=== PATIENT | female | born 1990 | race Caucasian/White ===

== ENCOUNTER 2016-09-15 23:44 | Emergency (ER) | payer BC, OTHER ==
[2016-09-15 23:49] VITALS: BP 106/74; PULSE 83; TEMP 98.1; BMI 24.3
--- NOTE | 2016-09-15 23:55 | PDOC ---
History of Present Illness - General Chief Complaint: Pain Stated Complaint: THROAT PAIN/GEN BODY PAIN Time Seen by Provider: 09/15/16 23:46 History Source: Patient Exam Limitations: No Limitations - History of Present Illness Initial Comments: 09/15/16 23:55 26 y f no pmhx sore throat, generalized muscle ache all day today. some congestion. no cp or sob. no n/v/d. no abd pain. no dysuria, fcy, or hematuria. in ed, in nad. Past History - Past Medical History Allergies/Adverse Reactions: Allergies Allergy/AdvReac Type Severity Reaction Status Date / Time [facility] Allergy Verified 12/16/14 00:33 Home Medications: Ambulatory Orders Albuterol Sulfate Inhaler - [Ventolin HFA Inhaler -] 2 inh PO PRN 12/16/14 Amox-Tr/K Cl [Augmentin - 875Mg Tablet] 1 tab PO BID #14 tablet 12/16/14 Asthma: Yes - Immunization History Immunization Up to Date: Yes - Psycho/Social/Smoking Cessation Hx Anxiety: No Suicidal Ideation: No Smoking Status: No Smoking History: Never smoked Have you smoked in the past 12 months: No Number of Cigarettes Smoked Daily: 0 Hx Alcohol Use: No Substance Use Type: None Review of Systems - Review of Systems Able to Perform ROS?: Yes Is the patient limited Romanian proficient: No Constitutional: Yes: Symptoms Reported, See HPI HEENTM: Yes: Symptoms Reported, See HPI Respiratory: No: Symptoms reported Cardiac (ROS): No: Symptoms Reported ABD/GI: No: Symptoms Reported : No: Symptoms Reported Integumentary: No: Symptoms Reported Neurological: No: Symptoms reported All Other Systems: Reviewed and Negative *Physical Exam - Physical Exam General Appearance: Yes: Nourished, Appropriately Dressed. No: Apparent Distress HEENT: positive: Normal ENT Inspection Neck: positive: Supple. negative: Tender Respiratory/Chest: positive: Lungs Clear, Normal Breath Sounds. negative: Respiratory Distress Cardiovascular: positive: Regular Rhythm, Regular Rate Gastrointestinal/Abdominal: positive: Normal Bowel Sounds, Soft Musculoskeletal: positive: Normal Inspection. negative: CVA Tenderness, Vertebral Tenderness Extremity: positive: Normal Capillary Refill Integumentary: positive: Normal Color Neurologic: positive: Fully Oriented, Alert, Normal Mood/Affect, Normal Response , Motor Strength 5/5 *DC/Admit/Observation/Transfer Diagnosis at time of Disposition: Viral infection - Discharge Dispostion Disposition: HOME Condition at time of disposition: Good - Patient Instructions Additional Instructions: PLENTY OF FLUIDS (WATER/GATORADE) MOTRIN/TYLENOL FOR FEVER OR PAIN REST RETURN IF FEVER, VOMITING, SHORTNESS OF BREATH - Post Discharge Activity Work/School Note: Back to Work
== END 2016-09-16 00:01 | disposition home or self-care (01) ==
LOC: FER 23:44
DX: B34.9 Viral infection, unspecified (principal)
CPT/HCPCS: 99282-25

== ENCOUNTER 2016-12-24 15:22 | Emergency (ER) | payer BC ==
[2016-12-24 15:28] VITALS: BP 128/86; PULSE 65; TEMP 97.6; BMI 24.0
[2016-12-24 15:45] LABS: PH,URINE 5.5 (4.5-8); URINE APPEARANCE Cloudy; URINE BILIRUBIN Negative (NEGATIVE); URINE BLOOD 3+ (NEGATIVE); URINE GLUCOSE (UA) Negative (NEGATIVE); URINE KETONE Negative (NEGATIVE); URINE LEUK ESTERASE Negative (NEGATIVE); URINE NITRITE Negative (NEGATIVE); URINE PROTEIN Trace (NEGATIVE); URINE UROBILINOGEN 0.2 E.U/dl (0.2-1.0)
[2016-12-24 15:46] LABS: URINE BACTERIA MODERATE /hpf (NEGATIVE); URINE COLOR YELLOW; URINE WBC 0-3 (3-5)
[2016-12-24 15:48] LABS: URINE HYALINE CAST 0-3 /lpf
[2016-12-24] MEDS ORDERED: SODIUM CHLORIDE 1,000 ML IV STA (15:54)
[2016-12-24] MEDS ORDERED: KETOROLAC TROMETHAMINE 30 MG/1 ML VIAL IVPUSH ONE (15:54)
[2016-12-24] MEDS ORDERED: ONDANSETRON 4 MG/2 ML VIAL IVPB ONE (15:55)
[2016-12-24] MEDS ORDERED: KETOROLAC TROMETHAMINE 30 MG/1 ML VIAL ONE (15:58)
[2016-12-24] MEDS ORDERED: ONDANSETRON 4 MG/2 ML VIAL ONE (15:58)
--- NOTE | 2016-12-24 15:59 | PDOC ---
History of Present Illness - General History Source: Patient Exam Limitations: No Limitations - History of Present Illness Initial Comments: 12/24/16 16:18 The patient is a 26 year old female, with significant past medical history of migraine headaches, who presents today complaining of RLQ abdominal pain, nausea ,and diarrhea x1 day. The patient states that she is experiencing RLQ intermittent cramping pain starting at 12:00pm today that sometimes radiates to the back and the groin. The patient is doubled over due to the severity of pain. The patient reports multiple episodes of diarrhea since the pain began at 12:00pm. She reports urinary urgency. 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 The patient took 1 extra strength Tylenol 4 hours ago with mild relief. Her LMP was 12/06/16. No fever, chills, vomiting. No chest pain, SOB, cough. No hx diverticulitis, kidney stones, No pregnancies. No hx of ovarian cysts. Allergies: Cefaclor Surgical Hx: none reported Social Hx: No tobacco use. <Cira Rollins - Last Filed: 12/24/16 18:01> <Gorge Alberto - Last Filed: 12/24/16 18:16> - General Chief Complaint: Pain, Acute Stated Complaint: RIGHT SIDE PAIN Time Seen by Provider: 12/24/16 15:52 Past History <Cira Rollins - Last Filed: 12/24/16 18:01> - Past Medical History Asthma: Yes - Immunization History Immunization Up to Date: Yes - Psycho/Social/Smoking Cessation Hx Anxiety: No Suicidal Ideation: No Smoking Status: No Smoking History: Never smoked Have you smoked in the past 12 months: No Number of Cigarettes Smoked Daily: 0 Hx Alcohol Use: No Drug/Substance Use Hx: No Substance Use Type: None <Gorge Alberto - Last Filed: 12/24/16 18:16> - Past Medical History Allergies/Adverse Reactions: Allergies Allergy/AdvReac Type Severity Reaction Status Date / Time cefaclor [From [facility]] Allergy Verified 12/24/16 15:23 Home Medications: Ambulatory Orders Cholecalciferol (Vitamin D3) [Vitamin D3] 2,000 unit PO DAILY 12/24/16 Ibuprofen 800 mg PO QID PRN #20 tablet 12/24/16 Ondansetron [Zofran Odt -] 4 mg SL TID PRN #20 od.tablet 12/24/16 Tamsulosin HCl [Flomax] 0.4 mg PO DAILY #7 cap.er.24h 12/24/16 Review of Systems - Review of Systems Able to Perform ROS?: Yes Comments:: 12/24/16 16:20 CONSTITUTIONAL: Absent: fever, chills, diaphoresis, generalized weakness, malaise, loss of appetite HEENT: Absent: rhinorrhea, nasal congestion, throat pain, throat swelling, difficulty swallowing, mouth swelling, ear pain, eye pain, visual Changes CARDIOVASCULAR: Absent: chest pain, syncope, palpitations, irregular heart rate, lightheadedness , peripheral edema RESPIRATORY: Absent: cough, shortness of breath, dyspnea with exertion, orthopnea, wheezing, stridor, hemoptysis GASTROINTESTINAL: Present: RLQ abdominal pain that is intermittently radiates to the back and groin, nausea, diarrhea Absent: abdominal distension, vomiting, constipation, melena, hematochezia GENITOURINARY: Present: urinary urgency, intermittent flank pain. Absent: dysuria, frequency, hesitancy, hematuria, genital pain MUSCULOSKELETAL: Absent: myalgia, arthralgia, joint swelling SKIN: Absent: rash, itching, pallor HEMATOLOGIC/IMMUNOLOGIC: Absent: easy bleeding, easy bruising, lymphadenopathy, frequent infections ENDOCRINE: Absent: unexplained weight gain, unexplained weight loss, heat intolerance, cold intolerance NEUROLOGIC: Absent: headache, focal weakness or paresthesias, dizziness, unsteady gait, seizure, mental status changes, bladder or bowel incontinence PSYCHIATRIC: Absent: anxiety, depression, suicidal or homicidal ideation, hallucinations. <Cira Rollins - Last Filed: 12/24/16 18:01> *Physical Exam - Vital Signs Last Vital Signs Temp Pulse Resp BP Pulse Ox 97.6 F 65 18 128/86 100 12/24/16 15:23 12/24/16 15:23 12/24/16 15:23 12/24/16 15:57 12/24/16 15:23 - Physical Exam Comments: 12/24/16 16:21 GENERAL: Well developed, well nourished. Awake and alert. Moderate distress due to right sided crampy abdominal pain, but completely cooperative. Afebrile with normal vital signs. HEENT: Normocephalic, atraumatic. PERRLA, EOMI. No conjunctival pallor. Sclera are non- icteric. Moist mucous membranes. Oropharynx is clear. NECK: Supple. Full ROM. No JVD. Carotid pulses 2+ and symmetric, without bruits. No thyromegaly. No lymphadenopathy. CARDIOVASCULAR: Regular rate and rhythm. No murmurs, rubs, or gallops. Distal pulses are 2+ and symmetric. PULMONARY: No evidence of respiratory distress. Lungs clear to auscultation bilaterally. No wheezing, rales or rhonchi. ABDOMINAL: Soft without mass or organomegaly. No tenderness elicited with deep palpation within all 4 quadrants. Non-distended. No rebound or guarding. No organomegaly. Normoactive bowel sounds. MUSCULOSKELETAL Normal range of motion at all joints. No bony deformities or tenderness. No CVA tenderness. EXTREMITIES: No cyanosis. No clubbing. No edema. No calf tenderness. SKIN: Warm and dry. Normal capillary refill. No rashes. No jaundice. NEUROLOGICAL: Alert, awake, appropriate. Cranial nerves 2-12 intact. No deficits to light touch and temperature in face, upper extremities and lower extremities. No motor deficits in the in face, upper extremities and lower extremities. Normoreflexic in the upper and lower extremities. Normal speech. Toes are downgoing bilaterally. Gait is normal without ataxia. PSYCHIATRIC: Cooperative. Good eye contact. Appropriate mood and affect. <Cira Rollins - Last Filed: 12/24/16 18:01> - Vital Signs Last Vital Signs Temp Pulse Resp BP Pulse Ox 97.6 F 65 18 128/86 100 12/24/16 15:23 12/24/16 15:23 12/24/16 15:23 12/24/16 15:23 12/24/16 15:23 <Gorge Alberto - Last Filed: 12/24/16 18:16> ED Treatment Course - LABORATORY CBC & Chemistry Diagram: 12/24/16 15:56 12/24/16 15:56 - ADDITIONAL ORDERS Additional order review: Laboratory Results 12/24/16 15:28 Urine Color Yellow Urine Appearance Cloudy Urine pH 5.5 Ur Specific [place] 1.025 Urine Protein Trace Urine Glucose (UA) Negative Urine Ketones Negative Urine Blood 3+ H Urine Nitrite Negative Urine Bilirubin Negative Urine Urobilinogen 0.2 e.u/dl Ur Leukocyte Esterase Negative Urine RBC 10-20 Urine WBC 0-3 Ur Epithelial Cells Few Urine Bacteria Moderate Hyaline Casts 0-3 Urine HCG, Qual Negative - RADIOLOGY Radiograph Interpretation: 12/24/16 18:01 EXAM#: TYPE/EXAM: RESULT: [id number] CT/SPIRAL- RENAL-STONE CT Flank pain. Rule out renal stone CT scan of the abdomen pelvis without oral and intravenous contrast Coronal and sagittal reformatted images were obtained The visualized lung base appears unremarkable and the heart is within normal limits in size. Evaluation of the liver, spleen, pancreas, gallbladder, both adrenal glands and both kidneys appear unremarkable. The left kidney appears unremarkable. Right kidney is within normal limits in size. There is mild right renal hydronephrosis and hydroureter down to the distal right ureter level with an obstructing stone measuring 4 mm. No stone is seen within the urinary bladder. The stomach is adequately distended without wall thickening. There is no evidence of small bowel obstruction or enlarged retroperitoneal lymph nodes. Normal-appearing terminal ileum. Normal- appearing appendix. Normal stool burden in the colon without wall thickening. Normal size uterus. There is minimal free fluid in the right adnexa which is nonspecific. Both ovaries are faintly seen with probable small follicles. Partially distended urinary bladder without wall thickening. Visualized osseous structures appear intact Impression: 4 mm obstructing stone in the distal right ureter seen on axial image #112 with mild right renal hydronephrosis and hydroureter. Left kidney appears unremarkable without evidence of left renal hydroureteronephrosis Minimal free fluid in the right adnexa which is nonspecific. Reported By: Elan Hope MD 12/24/16 3503 - Medications Given in the ED: ED Medications Discontinued Medications Generic Name Dose Route Start Last Admin Trade Name Freq PRN Reason Stop Dose Admin Ketorolac Tromethamine 30 mg 12/24/16 15:54 12/24/16 16:02 Toradol Injection - IVPUSH 12/24/16 15:55 30 mg ONCE ONE Administration Ondansetron HCl 4 mg 12/24/16 15:55 12/24/16 16:02 Zofran Injection IVPB 12/24/16 15:56 4 mg ONCE ONE Administration <Cira Rollins - Last Filed: 12/24/16 18:01> - LABORATORY CBC & Chemistry Diagram: 12/24/16 15:56 12/24/16 15:56 - ADDITIONAL ORDERS Additional order review: Laboratory Results 12/24/16 15:28 Urine Color Yellow Urine Appearance Cloudy Urine pH 5.5 Ur Specific [place] 1.025 Urine Protein Trace Urine Glucose (UA) Negative Urine Ketones Negative Urine Blood 3+ H Urine Nitrite Negative Urine Bilirubin Negative Urine Urobilinogen 0.2 e.u/dl Ur Leukocyte Esterase Negative Urine RBC 10-20 Urine WBC 0-3 Ur Epithelial Cells Few Urine Bacteria Moderate Hyaline Casts 0-3 Urine HCG, Qual Negative <Gorge Alberto - Last Filed: 12/24/16 18:16> Medical Decision Making - Medical Decision Making 12/24/16 17:06 Pain is much improved after administration of Toradol and fluids. Labs reviewed: White count of 13,000 with a normal differential, urinalysis with 3+ blood, 10-20 red cells, no sign of infection, suggestive of kidney stones. Remainder of labs without significant abnormalities. test negative. 12/24/16 18:13 CT reveals a 4 mm obstructing stone in the distal right ureter. There is hydroureter and hydronephrosis. The patient's pain however is significantly improved and she is comfortable at present. <Gorge Alberto - Last Filed: 12/24/16 18:16> *DC/Admit/Observation/Transfer - Attestations Scribe Attestion: 12/24/16 16:21 Documentation prepared by LETICIA Sahni, acting as durable medical equipment repairer for Gorge Alberto MD. <Cira Rollins - Last Filed: 12/24/16 18:01> - Discharge Dispostion Admit: No <Gorge Alberto - Last Filed: 12/24/16 18:16> Diagnosis at time of Disposition: Calculus of kidney - Discharge Dispostion Disposition: HOME Condition at time of disposition: Improved - Prescriptions Prescriptions: Tamsulosin HCl [Flomax] 0.4 mg PO DAILY #7 cap.er.24h Ibuprofen 800 mg PO QID PRN #20 tablet PRN Reason: Pain Ondansetron [Zofran Odt -] 4 mg SL TID PRN #20 od.tablet PRN Reason: Nausea And/Or Vomiting - Referrals Referrals: Alpesh Marcus MD., MD [Staff Physician] - 1 week - Patient Instructions Printed Discharge Instructions: DI for Kidney Stones Additional Instructions: Drink lots of fluids. Light diet. Medication as needed for nausea, and pain. Return to hospital if the pain is not controlled by medication. If pain resolves completely, this is a sign that the stone has passed. In either case, he should see a urologist for further evaluation and treatment within 1 week. - Post Discharge Activity Work/School Note: Back to Work
[2016-12-24 16:22] LABS: BASOPHIL 0.4 % (0-2.0); EOSINOPHIL 1.1 % (0-4.5); MCH 29.6 pg (25.7-33.7); MCHC 33.3 g/dl (32.0-36.0); MEAN CELL VOLUME 88.8 fl (80-96); MEAN PLT VOLUME 9.6 fl (7.5-11.1); NEUTROPHILS 79.3 % (42.8-82.8); PLATELET COUNT 268 K/MM3 (134-434); RDW 12.7 % (11.6-15.6); WHITE BLOOD COUNT 13.4 K/mm3 (4.0-10.8)
[2016-12-24 16:33] LABS: ALBUMIN 4.5 g/dl (3.5-5.0); ALK PHOS 56 U/L (32-92); ANION GAP 9 (8-16); BILIRUBIN,TOTAL 0.4 mg/dl (0.2-1.0); CALCIUM 9.3 mg/dl (8.4-10.2); CO2 25 mmol/L (22-28); CREATININE 0.9 mg/dl (0.6-1.3); GLUCOSE,RANDOM 104 mg/dl (74-106); SGOT/AST 23 U/L (10-42); SGPT/ALT 23 U/L (10-40); TOT PROT 7.4 g/dl (6.4-8.3)
[2016-12-24] MEDS ORDERED: SODIUM CHLORIDE 0.9% 1000 ML INFUS.BAG IV ONE (17:12)
[2016-12-24] MEDS ORDERED: TAMSULOSIN HCL 0.4 MG CAP.ER.24H (FP) PO ONE (18:12)
[2016-12-24] MEDS ORDERED: TAMSULOSIN HCL 0.4 MG CAP.ER.24H (FP) ONE (18:15)
== END 2016-12-24 18:21 | disposition home or self-care (01) ==
LOC: FER 15:22
PROC: 3E0333Z Introduction of Anti-inflammatory into Peripheral Vein, Percutaneous Approach (ICD-10-PCS; principal; 2016-12-24)
PROC: 3E033GC Introduction of Other Therapeutic Substance into Peripheral Vein, Percutaneous Approach (ICD-10-PCS; 2016-12-24)
PROC: 3E0337Z Introduction of Electrolytic and Water Balance Substance into Peripheral Vein, Percutaneous Approach (ICD-10-PCS; 2016-12-24)
DX: N23 Unspecified renal colic (principal); J45.909 Unspecified asthma, uncomplicated
CPT/HCPCS: 36415; 74176; 80053; 81003; 81015; 84703; 85025; 99284-25

== ENCOUNTER 2017-10-09 17:47 | Emergency (ER) | payer BC, OTHER ==
[2017-10-09 17:50] VITALS: BP 121/64; PULSE 65; TEMP 97.6; BMI 22.8
--- NOTE | 2017-10-09 17:53 | PDOC ---
History of Present Illness <Ari Batista - Last Filed: 10/10/17 03:32> - History of Present Illness Initial Comments: 10/09/17 19:47 Patient is a 27 year old female with no significant past medical history who presents to the ED with complaints of vision changes and head pain, s/p that occured this afternoon. Patient reports participating in a clinic when her pony suddenly became spooked and began to thrash violently around the field throwing the patient to the ground. Patient reports having no memory of the fall, but states the remembers suddenly kneeling on the floor trying to catch her breathe. She reports being able to immediately stand up and walk after the incident, stating she felt numb. Patient reports experiencing sudden onset of vision changes as well as right hand numbness, which prompted to come into the ED for further evaluation. Patient currently reports experiencing increased nausea, fatigue and left sided frontal headache in the ED. Denies chest pain, Sob. Denies nausea, vomiting. Denies loss of consciousness. Denies any other symptoms. Allergies: Ceclor Social history: No smoking. No alcohol. No illicit drugs. Surgical history: None PMD: None <Dipti Pa - Last Filed: 10/10/17 17:54> - General Chief Complaint: Injury Stated Complaint: fell of the horse Time Seen by Provider: 10/09/17 17:53 Past History <Ari Batista - Last Filed: 10/10/17 03:32> - Past Medical History Asthma: Yes - Immunization History Immunization Up to Date: Yes - Suicide/Smoking/Psychosocial Hx Smoking Status: No Smoking History: Never smoked Have you smoked in the past 12 months: No Number of Cigarettes Smoked Daily: 0 Hx Alcohol Use: No Drug/Substance Use Hx: No Substance Use Type: None <Dipti Pa - Last Filed: 10/10/17 17:54> - Past Medical History Allergies/Adverse Reactions: Allergies Allergy/AdvReac Type Severity Reaction Status Date / Time [facility] Allergy Verified 10/09/17 17:48 Home Medications: Ambulatory Orders NK [No Known Home Medication] 10/09/17 Review of Systems - Review of Systems Comments:: 10/09/17 19:47 GENERAL/CONSTITUTIONAL: +Fatigue No fever or chills. No weakness. HEAD, EYES, EARS, NOSE AND THROAT: +Left sided head pain. No change in vision. No ear pain or discharge. No sore throat. GASTROINTESTINAL: +Nausea. No vomiting, diarrhea or constipation. GENITOURINARY: No dysuria, frequency, or change in urination. CARDIOVASCULAR: No chest pain or shortness of breath. RESPIRATORY: No cough, wheezing, or hemoptysis. MUSCULOSKELETAL: No joint or muscle swelling or pain. No neck or back pain. SKIN: No rash NEUROLOGIC: +Left sided Headache. +Right hand numbness. No vertigo, loss of consciousness, ENDOCRINE: No increased thirst. No abnormal weight change. HEMATOLOGIC/LYMPHATIC: No anemia, easy bleeding, or history of blood clots. ALLERGIC/IMMUNOLOGIC: No hives or skin allergy. <Dipti Pa - Last Filed: 10/10/17 17:54> *Physical Exam - Vital Signs Last Vital Signs Temp Pulse Resp BP Pulse Ox 97.6 F 65 16 121/64 100 10/09/17 17:47 10/09/17 17:47 10/09/17 17:47 10/09/17 17:47 10/09/17 17:47 <Ari Batista - Last Filed: 10/10/17 03:32> - Vital Signs Last Vital Signs Temp Pulse Resp BP Pulse Ox 97.6 F 65 16 121/64 100 10/09/17 17:47 10/09/17 17:47 10/09/17 17:47 10/09/17 17:47 10/09/17 17:47 - Physical Exam Comments: 10/09/17 19:48 GENERAL: Awake, alert, and fully oriented, in no acute distress HEAD: No signs of trauma EYES: PERRLA, EOMI, sclera anicteric, conjunctiva clear ENT: Auricles normal inspection, hearing grossly normal, nares patent, oropharynx clear without exudates. Moist mucosa NECK: Normal ROM, supple, no lymphadenopathy, JVD, or masses LUNGS: Breath sounds equal, clear to auscultation bilaterally. No wheezes, and no crackles HEART: Regular rate and rhythm, normal S1 and S2, no murmurs, rubs or gallops ABDOMEN: Soft, nontender, normoactive bowel sounds. No guarding, no rebound. No masses EXTREMITIES: Normal range of motion, no edema. No clubbing or cyanosis. No cords , erythema, or tenderness NEUROLOGICAL: Normal speech, cranial nerves intact, negative pronator drift, 5/ 5 strength in all 4 extremities, normal sensation to light touch in all 4 extremities, normal cerebellar exam, normal gait, normal reflexes and tone SKIN: Warm, Dry, normal turgor, no rashes or lesions noted. <Dipti Pa - Last Filed: 10/10/17 17:54> Heart Score/ECG Review #1 10/10/17 17:53 My read: NSR, rate 69, normal axis and intervals, no YUE, isolated TW flattening in lead III <Dipti Pa - Last Filed: 10/10/17 17:54> ED Treatment Course - LABORATORY CBC & Chemistry Diagram: 10/09/17 18:00 10/09/17 18:08 - ADDITIONAL ORDERS Additional order review: Laboratory Results 10/09/17 10/09/17 10/09/17 19:20 18:10 18:08 PT with INR INR PTT (Actin FS) Sodium Potassium Chloride Carbon Dioxide Anion Gap BUN Creatinine Creat Clearance w eGFR Random Glucose Calcium Magnesium Total Bilirubin AST ALT Alkaline Phosphatase Total Protein Albumin Beta HCG, Quant Serum , Qual Negative Urine Color Yellow Urine Appearance Clear Urine pH 5.5 Ur Specific [place] 1.025 Urine Protein Negative Urine Glucose (UA) Negative Urine Ketones 4+ H Urine Blood Negative Urine Nitrite Negative Urine Bilirubin Negative Urine Urobilinogen 0.2 Ur Leukocyte Esterase Negative Blood Type O POSITIVE Antibody Screen 10/09/17 10/09/17 10/09/17 18:08 18:08 18:08 PT with INR Cancelled INR Cancelled PTT (Actin FS) Sodium Potassium Chloride Carbon Dioxide Anion Gap BUN Creatinine Creat Clearance w eGFR Random Glucose Calcium Magnesium Total Bilirubin AST ALT Alkaline Phosphatase Total Protein Albumin Beta HCG, Quant < 1.0 Serum , Qual Urine Color Urine Appearance Urine pH Ur Specific [place] Urine Protein Urine Glucose (UA) Urine Ketones Urine Blood Urine Nitrite Urine Bilirubin Urine Urobilinogen Ur Leukocyte Esterase Blood Type O POSITIVE Antibody Screen Negative 10/09/17 10/09/17 18:08 18:08 PT with INR 13.9 H INR 1.25 H PTT (Actin FS) 28.4 Sodium 133 L Potassium 3.4 L D Chloride 101 Carbon Dioxide 20 L Anion Gap 12 BUN 18 Creatinine 0.7 D Creat Clearance w eGFR > 60 Random Glucose 131 H D Calcium 9.2 Magnesium 1.6 L Total Bilirubin 0.7 D AST 25 ALT 19 Alkaline Phosphatase 54 Total Protein 7.8 Albumin 4.6 Beta HCG, Quant Serum , Qual Urine Color Urine Appearance Urine pH Ur Specific [place] Urine Protein Urine Glucose (UA) Urine Ketones Urine Blood Urine Nitrite Urine Bilirubin Urine Urobilinogen Ur Leukocyte Esterase Blood Type Antibody Screen 10/09/17 18:00 RBC 4.80 MCV 86.5 MCHC 33.9 RDW 12.3 MPV 9.2 Neutrophils % 84.9 H Lymphocytes % 8.6 Monocytes % 6.0 Eosinophils % 0.1 Basophils % 0.4 - Medications Given in the ED: ED Medications Discontinued Medications Generic Name Dose Route Start Last Admin Trade Name Jose PRN Reason Stop Dose Admin Acetaminophen 1,000 mg 10/09/17 19:41 10/09/17 19:51 Ofirmev Injection - IVPB 10/09/17 19:42 1,000 mg ONCE ONE Administration Metoclopramide HCl 10 mg 10/09/17 19:41 10/09/17 20:16 Reglan Injection - IVPUSH 10/09/17 19:42 10 mg ONCE ONE Administration Ondansetron HCl 4 mg 10/09/17 18:03 10/09/17 18:13 Zofran Injection IVPUSH 10/09/17 18:04 4 mg ONCE ONE Administration Sodium Chloride 1,000 ml 10/09/17 18:03 10/09/17 18:13 Normal Saline - IV 10/09/17 18:04 1,000 ml ONCE ONE Administration Sodium Chloride 1,000 ml 10/09/17 19:41 10/09/17 19:51 Normal Saline - IV 10/09/17 19:42 1,000 ml ONCE ONE Administration <Ari Batista - Last Filed: 10/10/17 03:32> - LABORATORY CBC & Chemistry Diagram: 10/09/17 18:00 10/09/17 18:08 <Dipti Pa - Last Filed: 10/10/17 17:54> Medical Decision Making - Medical Decision Making 10/10/17 03:32 symptomatically imporved <Ari Batista - Last Filed: 10/10/17 03:32> *DC/Admit/Observation/Transfer <Ari Batista - Last Filed: 10/10/17 03:32> <ChipdaveInderjitmariajody - Last Filed: 10/10/17 17:54> Diagnosis at time of Disposition: Post-traumatic headache Qualifiers: Headache chronicity pattern: acute headache Intractability: not intractable Qualified Code(s): G44.319 - Acute post-traumatic headache, not intractable - Discharge Dispostion Disposition: HOME Condition at time of disposition: Fair - Patient Instructions Printed Discharge Instructions: DI for Postconcussion Syndrome
[2017-10-09] MEDS ORDERED: ONDANSETRON 4 MG/2 ML VIAL ONE (17:59)
[2017-10-09] MEDS ORDERED: ONDANSETRON 4 MG/2 ML VIAL IVPUSH ONE (18:03)
[2017-10-09] MEDS ORDERED: SODIUM CHLORIDE 0.9% 500 ML INFUS.BAG IV ONE ×2 (18:03→19:41)
[2017-10-09 18:32] LABS: BASO % 0.4 % (0-2.0); EOS % 0.1 % (0-4.5); HEMATOCRIT 41.6 % (32.4-45.2); HEMOGLOBIN 14.1 GM/dl (10.7-15.3); LYMPH % 8.6 % (8-40); MCH 29.4 pg (25.7-33.7); MCHC 33.9 g/dl (32.0-36.0); MEAN CELL VOLUME 86.5 fl (80-96); MEAN PLT VOLUME 9.2 fl (7.5-11.1); NEUT % 84.9 % (42.8-82.8); PLATELET COUNT 318 K/MM3 (134-434); RDW 12.3 % (11.6-15.6); WHITE BLOOD COUNT 14.9 K/mm3 (4.0-10.8)
[2017-10-09 18:46] LABS: ACTIVATED PTT 28.4 SECONDS (24.0-38.9)
[2017-10-09 18:48] LABS: ALBUMIN 4.6 g/dl (3.5-5.0); ALK PHOS 54 U/L (32-92); ANION GAP 12 (8-16); BILIRUBIN,TOTAL 0.7 mg/dl (0.2-1.0); BLOOD UREA NITROGEN 18 mg/dl (7-18); CALCIUM 9.2 mg/dl (8.4-10.2); CHLORIDE 101 mmol/L (98-107); CO2 20 mmol/L (22-28); CREATININE 0.7 mg/dl (0.6-1.3); GLUCOSE,RANDOM 131 mg/dl (74-106); MAGNESIUM 1.6 mg/dL (1.8-2.4); POTASSIUM 3.4 mmol/L (3.5-5.1); SGOT/AST 25 U/L (10-42); SGPT/ALT 19 U/L (10-40); SODIUM 133 mmol/L (136-145); TOT PROT 7.8 g/dl (6.4-8.3)
[2017-10-09 18:51] LABS: INR 1.25 (0.82-1.09); PROTHROMBIN TIME (PATIENT) 13.9 SEC (10.2-13.0)
[2017-10-09 19:23] LABS: PH,URINE 5.5 (4.5-8); URINE APPEARANCE Clear; URINE BILIRUBIN Negative (NEGATIVE); URINE BLOOD Negative (NEGATIVE); URINE GLUCOSE (UA) Negative (NEGATIVE); URINE KETONE 4+ (NEGATIVE); URINE LEUK ESTERASE Negative (NEGATIVE); URINE NITRITE Negative (NEGATIVE); URINE PROTEIN Negative (NEGATIVE); URINE UROBILINOGEN 0.2 (0.2-1.0)
[2017-10-09 19:24] LABS: URINE COLOR YELLOW
[2017-10-09] MEDS ORDERED: METOCLOPRAMIDE HCL INJECTION 10 MG/2 ML VIAL IVPUSH ONE (19:41)
[2017-10-09] MEDS ORDERED: ACETAMINOPHEN 1000 MG/100 ML VIAL (NON FORMULARY) IVPB ONE (19:41)
[2017-10-09] MEDS ORDERED: ACETAMINOPHEN INJECTION 100 ML IVPB ONE (19:48)
--- NOTE | 2017-10-12 13:14 | EKG ---
Test Reason : Blood Pressure : / mmHG Vent. Rate : 069 BPM Atrial Rate : 069 BPM P-R Int : 126 ms QRS Dur : 082 ms QT Int : 434 ms P-R-T Axes : 050 039 025 degrees QTc Int : 465 ms NORMAL SINUS RHYTHM NORMAL ECG NO PREVIOUS ECGS AVAILABLE Confirmed by CHANTEL VILLARREAL MD ([id number]) on 10/12/2017 1:13:48 PM Referred By: TANYA Confirmed By:CHANTEL VILLARREAL MD
== END 2017-10-09 21:33 | disposition home or self-care (01) ==
LOC: FER 17:47
PROC: 3E0337Z Introduction of Electrolytic and Water Balance Substance into Peripheral Vein, Percutaneous Approach (ICD-10-PCS; principal; 2017-10-09)
PROC: 3E033NZ Introduction of Analgesics, Hypnotics, Sedatives into Peripheral Vein, Percutaneous Approach (ICD-10-PCS; 2017-10-09)
PROC: 3E033GC Introduction of Other Therapeutic Substance into Peripheral Vein, Percutaneous Approach (ICD-10-PCS; 2017-10-09)
DX: G44.319 Acute post-traumatic headache, not intractable (principal); V80.010A Animal-rider injured by fall from or being thrown from horse in noncollision accident, initial encounter; Y93.52 Activity, horseback riding; Y92.9 Unspecified place or not applicable; J45.909 Unspecified asthma, uncomplicated
CPT/HCPCS: 36415; 70450-TC; 71046-TC-FY; 72125-TC; 80053; 81003; 83735; 84702; 84703; 85025; 85610; 85730; 86850; 86900; 86901; 87086; 93005; 99283-25

== ENCOUNTER 2018-12-28 21:39 | Emergency (ER) | payer OTHER ==
[2018-12-28] MEDS ORDERED: ALBUTEROL SO4 2.5/IPRATROPIUM 0.5 INH SOL 3 ML VIAL.NEB. NEB ONE ×2 (21:48→21:53)
[2018-12-28 21:58] VITALS: BP 104/60; PULSE 78; TEMP 97.9; BMI 26.5
[2018-12-28 23:08] LABS: BASO % 0.4 % (0-2.0); EOS % 1.2 % (0-4.5); HEMATOCRIT 42.6 % (32.4-45.2); HEMOGLOBIN 13.7 GM/dl (10.7-15.3); MCH 29.2 pg (25.7-33.7); MCHC 32.1 g/dl (32.0-36.0); MEAN CELL VOLUME 90.8 fl (80-96); MEAN PLT VOLUME 8.9 fl (7.5-11.1); MONO % 7.5 % (3.8-10.2); NEUT % 70.9 % (42.8-82.8); PLATELET COUNT 275 K/MM3 (134-434); RBC 4.69 M/mm3 (3.60-5.2); RDW 12.9 % (11.6-15.6); WHITE BLOOD COUNT 9.6 K/mm3 (4.0-10.8)
[2018-12-28 23:17] LABS: ALBUMIN 4.1 g/dl (3.4-5.0); ALK PHOS 62 U/L (45-117); ANION GAP 11 MMOL/L (8-16); BILIRUBIN,TOTAL 0.5 mg/dl (0.2-1); BLOOD UREA NITROGEN 19 mg/dl (7-18); CALCIUM 8.9 mg/dl (8.5-10); CHLORIDE 106 mmol/L (98-107); CO2 22 mmol/L (21-32); CREATININE 0.7 mg/dl (0.55-1.3); GLUCOSE,RANDOM 92 mg/dl (74-106); SGOT/AST 18 U/L (15-37); SGPT/ALT 16 U/L (13-61); SODIUM 139 mmol/L (136-145); TOT PROT 7.5 g/dl (6.4-8.2)
[2018-12-28 23:18] LABS: ACTIVATED PTT 28.2 SECONDS (25.2-36.5)
[2018-12-28 23:25] LABS: INR 1.24 (0.82-1.09); PROTHROMBIN TIME (PATIENT) 13.8 SEC (10.2-13.0)
--- NOTE | 2018-12-28 23:28 | PDOC ---
History of Present Illness - General Chief Complaint: Asthma Stated Complaint: ASTHMA History Source: Patient, Unavil. due to pt. cond. - History of Present Illness Initial Comments: 12/28/18 23:23 28 yo F with h/o asthma here with c/o sob, tightness in her chest . states last 3 - 4 days she has had feeling she cant get air in or out and has been using her inhaler . states she was diagnosed with asthma. later in life in teenage years when she had bronchitis, and persisted to have breathing difficulty. works as a [employer] in [employer], and states today she was feeling lightheaded. denies feeling this way in past with asthma after using albuterol. no cough no f/c denies plueritic chest pain. no h/o travel or h/o prior pe or dvt. states she has had pain in her left leg. was also worked up for a polymyalgia, arthralgia with multiple joint pain .( between 04/15 and 06/2018) was tested for sle, and several autoimmune disease all of which were negative. also negative for lyme. is unsure of what her usual asthma triggers are, but denies seasonal allergies. Past History - Past Medical History Allergies/Adverse Reactions: Allergies Allergy/AdvReac Type Severity Reaction Status Date / Time cefaclor [From [facility]] Allergy Verified 12/28/18 21:45 Home Medications: Ambulatory Orders Albuterol Sulfate Inhaler - [Ventolin Hfa Inhaler -] 2 inh PO Q4H PRN 12/28/18 Montelukast Na [Singulair -] 10 mg PO DAILY 12/28/18 predniSONE [Deltasone -] 40 mg PO DAILY #5 tablet 12/28/18 Albuterol Sulfate Inhaler - [Ventolin HFA Inhaler -] 1 - 2 inh PO Q4H PRN #1 inhaler 12/29/18 Asthma: Yes COPD: No - Immunization History Immunization Up to Date: Yes - Suicide/Smoking/Psychosocial Hx Smoking Status: No Smoking History: Never smoked Have you smoked in the past 12 months: No Number of Cigarettes Smoked Daily: 0 Hx Alcohol Use: Yes Drug/Substance Use Hx: No Substance Use Type: None Review of Systems - Review of Systems Constitutional: No: Chills, Diaphoresis, Fever HEENTM: No: Eye Pain, Blurred Vision Respiratory: No: Cough, Orthopnea Cardiac (ROS): Yes: Chest Pain. No: Edema ABD/GI: No: Abdominal Distended All Other Systems: Reviewed and Negative *Physical Exam - Vital Signs Last Vital Signs Temp Pulse Resp BP Pulse Ox 97.9 F 78 17 104/60 99 12/28/18 21:41 12/28/18 21:41 12/28/18 21:41 12/28/18 21:41 12/28/18 21:41 - Physical Exam Comments: 12/28/18 23:26 awake alert lungs clear bilat heart rrr no mrg abd soft nt nd ext wwp no edema. no calf tenderness skin warm and dry. Heart Score/ECG Review #1 General ECG Interpretation: Sinus Rhythm, Normal Rate (77), Normal Intervals, No acute ischemic changes ED Treatment Course - LABORATORY CBC & Chemistry Diagram: 12/28/18 22:45 12/28/18 22:45 - ADDITIONAL ORDERS Additional order review: Laboratory Results 12/28/18 12/28/18 22:45 22:30 Sodium 139 Potassium 4.0 Chloride 106 Carbon Dioxide 22 Anion Gap 11 BUN 19 H Creatinine 0.7 Creat Clearance w eGFR 98.93 Random Glucose 92 Calcium 8.9 Total Bilirubin 0.5 AST 18 ALT 16 Alkaline Phosphatase 62 Total Protein 7.5 Albumin 4.1 Urine HCG, Qual Negative 12/28/18 22:45 RBC 4.69 MCV 90.8 MCHC 32.1 RDW 12.9 MPV 8.9 Neutrophils % 70.9 Lymphocytes % 20.0 Monocytes % 7.5 Eosinophils % 1.2 Basophils % 0.4 - RADIOLOGY Radiology Studies Ordered: Category Date Time Status CHEST PA & LAT [RAD] Stat Radiology 12/28/18 22:28 Taken - Medications Given in the ED: ED Medications Discontinued Medications Generic Name Dose Route Start Last Admin Trade Name Freq PRN Reason Stop Dose Admin Albuterol/Ipratropium 1 amp 12/28/18 21:48 12/28/18 21:55 Duoneb - NEB 12/28/18 21:49 1 amp ONCE ONE Administration Medical Decision Making - Medical Decision Making 12/28/18 23:27 28 yo F with h/o bronchospasm/ asthma, here with co chest pain and sob. no overt wheezing on exam. differential includes bronchospasm, infection such as pna, pe, pericarditis. plan cxr labs d dimer, ekg. cxr negative. labs unremarkable. d dimer pending. ekg performed. pt given bronchodilators to help aeration although no overt wheezing heard. 12/29/18 01:36 pt labs ekg cxr negative. feels better after neb however. will take prednisone 60mg given rx for 5 days prednisone and inhaler. d dimer negative. *DC/Admit/Observation/Transfer Diagnosis at time of Disposition: Asthma - Discharge Dispostion Disposition: HOME Condition at time of disposition: Improved Decision to Admit order: No - Prescriptions Prescriptions: Albuterol Sulfate Inhaler - [Ventolin HFA Inhaler -] 1 - 2 inh PO Q4H PRN #1 inhaler PRN Reason: Wheezing predniSONE [Deltasone -] 40 mg PO DAILY #5 tablet - Referrals Referrals: Alfred Sweet MD [Staff Physician] - Hitesh Junior MD [Staff Physician] - Stephen Grimes MD [Staff Physician] - - Patient Instructions Printed Discharge Instructions: Asthma -- Adult Additional Instructions: you should follow up with your primary doctor. call to schedule to be seen within one week . you should use your inhaler 2 puffs every 4 hour as needed for wheezing. return for any worsenign shortness of breath. chest pains, fever or any concerns. you xray is negative for any infection or other abnormality. your labs are normal. your EKG to look at your heart is also normal - Post Discharge Activity
[2018-12-29] MEDS ORDERED: predniSONE 20 MG TABLET (UD) PO ONE (01:36)
[2018-12-29] MEDS ORDERED: predniSONE 20 MG TABLET (UD) ONE (01:37)
--- NOTE | 2018-12-30 08:25 | EKG ---
Test Reason : Blood Pressure : / mmHG Vent. Rate : 077 BPM Atrial Rate : 077 BPM P-R Int : 110 ms QRS Dur : 076 ms QT Int : 392 ms P-R-T Axes : 034 044 021 degrees QTc Int : 443 ms SINUS RHYTHM WITH SHORT MO OTHERWISE NORMAL ECG WHEN COMPARED WITH ECG OF 09-OCT-2017 18:42, NO SIGNIFICANT CHANGE WAS FOUND Confirmed by BLU RUSSELL, AUDELIA ([id number]) on 12/30/2018 8:24:51 AM Referred By: DR CAO Confirmed By:AUDELIA HURT MD
== END 2018-12-29 01:42 | disposition home or self-care (01) ==
LOC: FER 21:39
PROC: 3E0F7GC Introduction of Other Therapeutic Substance into Respiratory Tract, Via Natural or Artificial Opening (ICD-10-PCS; principal; 2018-12-28)
DX: J45.909 Unspecified asthma, uncomplicated (principal)
CPT/HCPCS: 36415; 71046-TC-FY; 80053; 84703; 85025; 85379; 85610; 85730; 93005; 99281-25

== ENCOUNTER 2019-09-20 01:47 | Emergency (ER) | payer OTHER ==
[2019-09-20 01:53] VITALS: TEMP 97.7; BMI 27.4
--- NOTE | 2019-09-20 02:27 | PDOC ---
History of Present Illness - General Chief Complaint: Migraine Headache Stated Complaint: [place] Time Seen by Provider: 09/20/19 02:19 - History of Present Illness Initial Comments: This 29-year-old woman with a history of migraine and asthma presents with few hour history of right-sided visual changes (transient) and left-sided headache accompanied by nausea/ vomiting/photophobia. Patient states that she does not take any specific medications for her migraine headaches because they are relatively rare. She usually presents to emergency room for treatment when she develops one. She had been seen by a neurologist in the past and thinks she may have had an MRI but denies taking any migraine specific medication at any time. 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 No clear trigger noted. Past History - Past Medical History Allergies/Adverse Reactions: Allergies Allergy/AdvReac Type Severity Reaction Status Date / Time cefaclor [From [facility]] Allergy Verified 12/28/18 21:45 Home Medications: Ambulatory Orders Albuterol Sulfate Inhaler - [Ventolin Hfa Inhaler -] 2 inh PO Q4H PRN 12/28/18 Montelukast Na [Singulair -] 10 mg PO DAILY 12/28/18 Asthma: Yes COPD: No - Immunization History Immunization Up to Date: Yes - Psycho Social/Smoking Cessation Hx Smoking Status: No Smoking History: Unknown if ever smoked Have you smoked in the past 12 months: No Number of Cigarettes Smoked Daily: 0 Information on smoking cessation initiated: No Hx Alcohol Use: No Drug/Substance Use Hx: No Substance Use Type: None Review of Systems - Review of Systems Able to Perform ROS?: Yes Comments:: 12 point review of systems is negative except for what is noted in the history of present illness *Physical Exam - Vital Signs Last Vital Signs Temp Pulse Resp BP Pulse Ox 97.7 F 57 L 14 109/72 100 09/20/19 01:49 09/20/19 01:49 09/20/19 01:49 09/20/19 01:49 09/20/19 01:49 - Physical Exam GENERAL: Adult female, alert and oriented x3, moderate distress secondary to nausea and headache HEAD: Normal with no signs of trauma. EYES: PERRLA, EOMI, sclera anicteric, conjunctiva clear. ENT: Ears normal, nares patent, oropharynx clear without exudates. Dry mucous membranes. NECK: Normal range of motion, supple without lymphadenopathy, JVD, or masses. LUNGS: Breath sounds equal, clear to auscultation bilaterally. No wheezes, and no crackles. HEART:Regular rate and rhythm, normal S1 and S2 without murmur, rub or gallop. ABDOMEN:.normal bowel sounds No guarding,tenderness or rebound.No masses No distention. EXTREMITIES: Normal range of motion, no edema. No clubbing or cyanosis. No erythema, or tenderness. NEUROLOGICAL: Cranial nerves II through XII grossly intact. Normal speech. No focal neurologic deficits MUSCULOSKELETAL: Back non-tender to palpation, no CVA tenderness SKIN: Warm, Dry, normal turgor, no rashes or lesions noted. ED Progress Note - Progress Note Progress Note: Although the patient states that she has had similar symptoms in the past, because of the rarity of her episodes and the fact that she is not on any migraine specific medications, noncontrast head CT was performed to evaluate for acute intracranial pathology Noncontrast head CT preliminary interpretation by [employer] teacher: No evidence of acute intracranial pathology. Treatment of the patient's migraine headache with metoclopramide and diphenhydramine was planned but patient states that she has had a panic attack in the past with IV metoclopramide. Therefore, treatment with Toradol 30 mg IV and Zofran 4 mg IV given. Patient noted no significant change in her symptoms with above treatment. Patient given additional Zofran 4 mg IV and acetaminophen 1 g IV. Headache and nausea persist after additional Zofran 4 mg and acetaminophen 1 g IV. Patient states that she has not had any previous experience with triptan medication. She has no history of cardiac arrhythmia or any other cardiac issues. There appears to be no contraindications for triptan. Patient given sumatriptan 6 mg SQ Patient is able to sleep after Sumatriptan although when awakened states that she still has some pain and mild nausea. Dexamethasone 10 mg IV administered to prevent rebound/recurrent headache Patient states the nausea is significantly better but still has considerable amount of left-sided headache after above medications. Dilaudid 0.5 mg IV given 09/20/19 07:08 Patient sleepiing after Dilaudid 0.5mg IV Case signed out to Dr Woody at end of shift Discharge - Discharge Information Problems reviewed: Yes Clinical Impression/Diagnosis: Migraine Qualifiers: Migraine type: with aura Status migrainosus presence: without status migrainosus Intractability: not intractable Qualified Code(s): G43.109 - Migraine with aura, not intractable, without status migrainosus Condition: Stable Disposition: HOME - Follow up/Referral Referrals: Solitario Roberto MD [Staff Physician] - - Patient Discharge Instructions Patient Printed Discharge Instructions: Migraine -- Adult Additional Instructions: rest ; drink plenty of fluids no work today Ibuprofen/Naproxen as needed for recurrent headache followup with neurologist(Dr Roberto); call office today for followup - Post Discharge Activity Work/Back to School Note: Back to Work
[2019-09-20] MEDS ORDERED: METOCLOPRAMIDE HCL INJECTION 10 MG/2 ML VIAL IVPB ONE (03:18)
[2019-09-20] MEDS ORDERED: METOCLOPRAMIDE HCL INJECTION 10 MG/2 ML VIAL ONE (03:29)
[2019-09-20] MEDS ORDERED: KETOROLAC TROMETHAMINE 30 MG/1 ML VIAL IVPUSH ONE (03:39)
[2019-09-20] MEDS ORDERED: ONDANSETRON 4 MG/2 ML VIAL IVPUSH ONE ×2 (03:39→04:29)
[2019-09-20] MEDS ORDERED: ONDANSETRON 4 MG/2 ML VIAL ONE ×2 (03:41→04:32)
[2019-09-20] MEDS ORDERED: KETOROLAC TROMETHAMINE 30 MG/1 ML VIAL ONE (03:41)
[2019-09-20] MEDS ORDERED: ACETAMINOPHEN 1000 MG/100 ML VIAL (NON FORMULARY) IVPB ONE (04:30)
[2019-09-20] MEDS ORDERED: ACETAMINOPHEN INJECTION 100 ML IVPB ONE (04:31)
[2019-09-20] MEDS ORDERED: SUMATRIPTAN SUCCINATE 6 MG/0.5 ML VIAL SQ ONE (05:09)
[2019-09-20] MEDS ORDERED: SUMATRIPTAN SUCCINATE 6 MG/0.5 ML VIAL ONE (05:13)
[2019-09-20] MEDS ORDERED: DEXAMETHASONE SOD PHOSPHATE 10 MG/1 ML VIAL IVPUSH ONE (06:11)
[2019-09-20] MEDS ORDERED: DEXAMETHASONE SOD PHOSPHATE 10 MG/1 ML VIAL ONE (06:26)
[2019-09-20] MEDS ORDERED: HYDROmorphone HCL CARPU-JECT 1 MG/1 ML DISP.SYRIN IVPUSH ONE ×2 (06:42→06:52)
[2019-09-20] MEDS ORDERED: HYDROmorphone HCL CARPU-JECT 1 MG/1 ML DISP.SYRIN ONE (06:54)
[2019-09-20 07:22] VITALS: BP 92/51; PULSE 75
--- NOTE | 2019-09-20 07:52 | PDOC ---
*Physical Exam - Vital Signs Last Vital Signs Temp Pulse Resp BP Pulse Ox 97.7 F 75 14 92/51 L 98 09/20/19 01:49 09/20/19 07:21 09/20/19 07:21 09/20/19 07:21 09/20/19 07:21 - Physical Exam 09/20/19 07:48 29 y/o female with hx of migraine headaches presents to ER with migraine headache. Pt seen by Dr. Tan, given IV fluids, zofran, Tylenol, Decadron, Toradol and Dilaudid. CT negative. Patient is feeling much better now. Not the worse headache. No fever, blurred vision or neck pain. Denies fallor trauma. Has been treated in past for her migraines and this felt the same. Was a little nauseous when she got to ER. General Appearance: Yes: Nourished, Appropriately Dressed. No: Apparent Distress HEENT: positive: EOMI, OMERO, Normal ENT Inspection, Normal Voice, Symmetrical, Pharynx Normal Neck: positive: Trachea midline, Normal Thyroid, Supple. negative: Tender, Rigid, Carotid bruit Respiratory/Chest: positive: Lungs Clear, Normal Breath Sounds. negative: Chest Tender, Respiratory Distress Cardiovascular: positive: Regular Rhythm, Regular Rate, S1, S2. negative: Edema , JVD, Murmur Gastrointestinal/Abdominal: positive: Normal Bowel Sounds, Flat, Soft. negative : Tender, Organomegaly Lymphatic: negative: Adenopathy, Tenderness, Other Musculoskeletal: positive: Normal Inspection. negative: CVA Tenderness Extremity: positive: Normal Capillary Refill, Normal Inspection, Normal Range of Motion Integumentary: positive: Normal Color, Dry, Warm Neurologic: positive: bezel cutter II-XII NML intact (no focal deficits no meningeal signs noted), Fully Oriented, Alert, Normal Mood/Affect, Normal Response, Motor Strength 5/5 ED Treatment Course - Medications Given in the ED: ED Medications Discontinued Medications Generic Name Dose Route Start Last Admin Trade Name Jose PRN Reason Stop Dose Admin Acetaminophen 1,000 mg 09/20/19 04:30 09/20/19 04:31 Ofirmev Injection - IVPB 09/20/19 04:31 1,000 mg ONCE ONE Administration Dexamethasone Sodium Phosphate 10 mg 09/20/19 06:11 09/20/19 06:26 Decadron Injection - IVPUSH 09/20/19 06:12 10 mg ONCE ONE Administration Diphenhydramine HCl 25 mg 09/20/19 03:19 09/20/19 04:04 Benadryl Injection - IVPUSH 09/20/19 03:20 Not Given ONCE ONE Hydromorphone HCl 1 mg 09/20/19 06:42 09/20/19 07:09 Dilaudid Injection - IVPUSH 09/20/19 06:43 Not Given ONCE ONE Hydromorphone HCl 0.5 mg 09/20/19 06:52 09/20/19 06:53 Dilaudid Injection - IVPUSH 09/20/19 06:53 0.5 mg ONCE ONE Administration Ketorolac Tromethamine 30 mg 09/20/19 03:39 09/20/19 03:40 Toradol Injection - IVPUSH 09/20/19 03:40 30 mg ONCE ONE Administration Metoclopramide HCl 10 mg 09/20/19 03:18 09/20/19 04:04 Reglan Injection - IVPB 09/20/19 03:19 Not Given ONCE ONE Ondansetron HCl 4 mg 09/20/19 03:39 09/20/19 03:51 Zofran Injection IVPUSH 09/20/19 03:40 4 mg ONCE ONE Administration Ondansetron HCl 4 mg 09/20/19 04:29 09/20/19 04:31 Zofran Injection IVPUSH 09/20/19 04:30 4 mg ONCE ONE Administration Sumatriptan Succinate 6 mg 09/20/19 05:09 09/20/19 05:20 Imitrex Injection - SQ 09/20/19 05:10 6 mg ONCE ONE Administration ED Progress Note - Progress Note Progress Note: 09/20/19 07:51 Pt is improved Will be discharged home with follow up with her PMD If worsen return to ER Discharge - Discharge Information Problems reviewed: Yes Clinical Impression/Diagnosis: Migraine Qualifiers: Migraine type: with aura Status migrainosus presence: without status migrainosus Intractability: not intractable Qualified Code(s): G43.109 - Migraine with aura, not intractable, without status migrainosus Condition: Stable Disposition: HOME - Admission No - Follow up/Referral Referrals: Solitario Roberto MD [Staff Physician] - - Patient Discharge Instructions Patient Printed Discharge Instructions: Migraine -- Adult Additional Instructions: rest ; drink plenty of fluids no work today Ibuprofen/Naproxen as needed for recurrent headache followup with neurologist(Dr Roberto); call office today for followup - Post Discharge Activity Work/Back to School Note: Back to Work
== END 2019-09-20 07:54 | disposition home or self-care (01) ==
LOC: FER 01:47
PROC: 3E033NZ Introduction of Analgesics, Hypnotics, Sedatives into Peripheral Vein, Percutaneous Approach (ICD-10-PCS; principal; 2019-09-20)
PROC: 3E033GC Introduction of Other Therapeutic Substance into Peripheral Vein, Percutaneous Approach (ICD-10-PCS; 2019-09-20)
PROC: 3E023GC Introduction of Other Therapeutic Substance into Muscle, Percutaneous Approach (ICD-10-PCS; 2019-09-20)
DX: G43.909 Migraine, unspecified, not intractable, without status migrainosus (principal); Z88.8 Allergy status to other drugs, medicaments and biological substances; J45.909 Unspecified asthma, uncomplicated
CPT/HCPCS: 70450-TC; 99282-25; J0131; J1100